=== PATIENT | female | born 1950 | race Hispanic/Latino ===

== ENCOUNTER → 2019-05-24 | Outpatient (CLI) | payer MEDICARE | END | disposition home or self-care (01) | LOC: RAH 13:20 | PROVIDERS: ATTEND Family Medicine | DX: Z12.31 Encounter for screening mammogram for malignant neoplasm of breast (principal) | CPT/HCPCS: 77067 ==

== ENCOUNTER → 2022-11-16 | Outpatient (CLI) | payer MEDICARE ==
[~2022-11-16] MED LIST: REGADENOSON 0.4 MG/5 ML PF SYG IVP ONE
== END | disposition home or self-care (01) ==
LOC: SHCH 09:14
PROVIDERS: ATTEND Internal Medicine Cardiovascular Disease
DX: R07.9 Chest pain, unspecified (principal); R06.00 Dyspnea, unspecified
CPT/HCPCS: 78452; 96374; 93017; J2785; A9500 ×2

== ENCOUNTER → 2025-08-24 | Outpatient (CLI) | payer MEDICARE ==
--- NOTE | 2025-08-25 01:28 | HMCIMG ---
ULTRASOUND PELVIS COMPLETE Clinical Details: Unspecified ovarian cyst on the right side. Technique: Transabdominal pelvic ultrasound (complete) with image documentation was performed. Findings: Uterus: The uterus has been removed (status post hysterectomy). Endometrium: Not applicable due to absence of the uterus. Right Ovary: The right ovary is not visualized. The right adnexal region appears within normal limits with no abnormal masses detected. Normal Doppler flow is noted on transabdominal images. Left Ovary: The left ovary is not visualized. The left adnexal region appears within normal limits with no abnormal masses detected. Normal Doppler flow is noted on transabdominal images. Cul-de-sac: No free fluid is detected. Impression: * Post-hysterectomy status. * Both ovaries are not visualized; bilateral adnexal regions appear normal. * No adnexal mass or free fluid identified. /[place]
== END | disposition home or self-care (01) ==
LOC: RAH 10:33
PROVIDERS: ATTEND Family Medicine
DX: N83.201 Unspecified ovarian cyst, right side (principal); N83.202 Unspecified ovarian cyst, left side; Z90.710 Acquired absence of both cervix and uterus
CPT/HCPCS: 76856